=== PATIENT | female | born 1955 | race Two or more races ===

== ENCOUNTER 2017-05-28 08:26 | Inpatient (IN) | payer MEDICAID ==
[2017-05-21 09:40] LABS: BASOPHILS % (AUTO) 0.9 % (0.0-2.0); EOSINOPHILS % (AUTO) 1.9 % (0.0-3.0); MEAN CORPUSCULAR HEMOGLOBIN 30.2 PG (27.0-31.0); MEAN CORPUSCULAR HGB CONC 32.4 G/DL (32.0-36.0); MEAN CORPUSCULAR VOLUME 93 FL (80-99); MEAN PLATELET VOLUME 7.4 FL (6.5-10.1); MONOCYTES % (AUTO) 6.6 % (1.0-10.0); NEUTROPHILS % (AUTO) 56.6 % (45.0-75.0); PLATELET COUNT 194 K/UL (150-450); RED BLOOD COUNT 4.47 M/UL (4.20-5.40); RED CELL DISTRIBUTION WIDTH 12.3 % (11.6-14.8)
[2017-05-21 09:48] LABS: ALANINE AMINOTRANSFERASE 19 U/L (3-33); ALBUMIN/GLOBULIN RATIO 1.5 (1.0-2.7); ANION GAP 8 (5-15); ASPARTATE AMINO TRANSFERASE 22 U/L (5-40); CALCIUM 11.3 mg/dL (8.6-10.2); CARBON DIOXIDE 30 mEQ/L (20-30); CHLORIDE 104 mEQ/L (98-107); CREATININE 0.9 mg/dL (0.5-0.9); GLOMERULAR FILTRATION RATE > 60 mL/min (>60); HEMOLYSIS 4; POTASSIUM 4.2 mEQ/L (3.4-4.9); SODIUM 142 mEQ/L (135-145); TOTAL PROTEIN 7.5 g/dL (6.6-8.7)
--- NOTE | 2017-05-21 10:47 | Diagnostic Imaging Report ---
Indication: Cough Technique: Two views of the chest Comparison: none Findings: Lungs and pleural spaces are clear. Heart size is normal. The bones are unremarkable Impression: Negative
--- NOTE | 2017-05-21 15:37 | Cardiology Report ---
APPROVED REPORT EKG Measurement Heart [id number] Normal sinus rhythm Normal ECG
[~2017-05-28] VITALS: Ht 162.6 cm; Wt 77.1 kg
[2017-05-28] VITALS (12 sets, daily range): BP systolic 98–137; BP diastolic 55–77
[~2017-05-28 08:26] MED LIST: NKM; ceFAZolin sod 1 GM in NS 55 ML IVPB ONE
[2017-05-28] MEDS ORDERED: Vancomycin 1 GM in D5W 275 ML IVPB ONE (09:00)
--- NOTE | 2017-05-28 12:28 | Pre-Procedure Note/Attestation ---
Pre-Procedure Note/Attestation Complete Prior to Procedure Planned Procedure: right Procedure Narrative: right breast partial mastectomy with pre-op needle localization and axillary lymph node biopsy Indications for Procedure Pre-Operative Diagnosis: extensive DCIS right breast Attestation I attest that I discussed the nature of the procedure; its benefits; risks and complications; and alternatives (and the risks and benefits of such alternatives ), prior to the procedure, with the patient (or the patient's legal loan servicing representative). I attest that, if there was a reasonable possibility of needing a blood transfusion, the patient (or the patient's legal loan servicing representative) was given the [facility] standardized written summary, pursuant to the Ángel Hepler Blood Safety Act ([place] Health and Safety Code # 1645, as amended). I attest that I re-evaluated the patient just prior to the surgery and that there has been no change in the patient's H&P, except as documented below: none LUCIO STARR May 28, 2017 12:28
[2017-05-28] MEDS ORDERED: Bupivacaine w/Epi 0.5% 30ml Vial INJ ONE (12:34)
[2017-05-28] MEDS ORDERED: Propofol 10mg/ml 20ml IV ONE (13:00)
[2017-05-28] MEDS ORDERED: Glycopyrrolate 0.2mg/ml 1ml Vial ONE (13:00)
[2017-05-28] MEDS ORDERED: Ketorolac 30mg Inj ONE (13:00)
[2017-05-28] MEDS ORDERED: Zemuron 50mg/5ml Inj IV ONE (13:00)
[2017-05-28] MEDS ORDERED: Dexamethasone 4mg/ml vial ONE (13:00)
[2017-05-28] MEDS ORDERED: fentaNYL 100 mcg/2 mL IV ONE (13:00)
[2017-05-28] MEDS ORDERED: Sterile Water Irrig 1000ml IRRIG ONE (13:00)
[2017-05-28] MEDS ORDERED: Morphine Sulfate 10mg/ml Inj ONE (13:00)
[2017-05-28] MEDS ORDERED: Midazolam 2mg/2ml Inj ONE (13:00)
[2017-05-28] MEDS ORDERED: Metoclopramide 10mg/2ml Inj ONE (13:00)
[2017-05-28] MEDS ORDERED: Neostigmine 1mg/ml 10ml Inj ONE (13:00)
--- NOTE | 2017-05-28 14:11 | Anethesia Preoperative Eval ---
Anesthesia Pre-op PMH/ROS General Date of Evaluation: May 28, 2017 Time of Evaluation: 13:00 Anesthesiologist: tavia ASA Score: ASA 2 Mallampati Score Class I : Soft palate, uvula, fauces, pillars visible Class II: Soft palate, uvula, fauces visible Class III: Soft palate, base of uvula visible Class IV: Only hard plate visible Mallampati Classification: Class I Surgeon: bita Diagnosis: rIGHT BREAST MASS Surgical Procedure: RIGHT PARTIAL MASTECTOMY AXILLAR NODE DISSECTION Anesthesia History: none Family History: no anesthesia problems Allergies: Coded Allergies: No Known Allergies (Unverified , 05/26/17) Medications: see eMAR Anesthesia Pre-op Phys. Exam Physician Exam Last Vital Signs Date Time Temp Pulse Resp B/P (MAP) Pulse Ox O2 Delivery O2 Flow Rate FiO2 05/28/17 12:10 97.6 75 18 115/69 97 Room Air Constitutional: NAD Neurologic: CN 2-12 intact Cardiovascular: RRR Respiratory: CTA Airway Exam Mallampati Score: Class II MO: full ROM: full Teeth: intact Anesthesia Pre-op A/P Risk Assessment & Plan Plan: GA Pre-Antibiotics Given Within 1 Hr of Incision: Yes Time Given: 13:40 Neto Alcocer M.D. May 28, 2017 14:11
--- NOTE | 2017-05-28 14:13 | Immediate Post-Op Evaluation ---
Immediate Post-Op Evalulation Immediate Post-Op Evalulation Procedure: RIGHT PARTIAL MASTECTOMY Date of Evaluation: May 28, 2017 Time of Evaluation: 14:45 IV Fluids: 1000 Blood Products: 0 Estimated Blood Loss: 5 Urinary Output: 0 Blood Pressure Systolic: 105 Blood Pressure Diastolic: 63 Pulse Rate: 55 Respiratory Rate: 16 O2 Sat by Pulse Oximetry: 99 Temperature (Fahrenheit): 98 Pain Score (1-10): 0 Nausea: No Vomiting: No Patient Status: awake, reacts, patent Hydration Status: adequate Given Within 1 Hr of Incision: Yes Time Given: 13:40 Neto Alcocer M.D. May 28, 2017 14:13
[2017-05-28] MEDS ORDERED: Metoclopramide 10mg/2ml Inj IVP PRN ×2 (14:15→16:00)
[2017-05-28] MEDS ORDERED: fentaNYL 100 mcg/2 mL IV PRN (14:15)
[2017-05-28] MEDS ORDERED: Hydromorphone 0.5mg/0.5ml inj IVP PRN (14:15)
[2017-05-28] MEDS ORDERED: Meperidine 25mg/0.5ml Inj (FOR RIGORS ONLY) IV PRN (14:15)
--- NOTE | 2017-05-28 14:15 | 48 Hour Post Anesthesia Eval ---
Post Anesthesia Evaluation Procedure: RIGHT PARTIAL MASTECTOMY Date of Evaluation: May 30, 2017 Time of Evaluation: 08:00 Blood Pressure Systolic: 123 0: 74 Pulse Rate: 82 Respiratory Rate: 14 Temperature (Fahrenheit): 98 O2 Sat by Pulse Oximetry: 99 Airway: patent Nausea: No Vomiting: No Pain Intensity: 0 Hydration Status: adequate Mental Status/LOC: patient returned to baseline Follow-up care needed: patient intructions given Neto Alcocer M.D. May 28, 2017 14:15
[2017-05-28] MEDS ORDERED: NS Irrig 1000ml IRRIG ONE (14:25)
--- NOTE | 2017-05-28 15:28 | Brief Operative Note ---
Immediate Post Operative Note Operative Note Pre-op Diagnosis: extensive DCIS right breast Procedure: right breast partial mastectomy with pre-op needle localization and right axillary lymph node biopsy Post-op Diagnosis: extensive DCIS right breast Post-op Diagnosis: same as pre-op Findings: consistent w/pre-op dx studies Surgeon: bita Glove Presser: merlin Anesthesiologist: tavia Anesthesia: general Specimen: yes - partial mastectomy, axillary lymph nodes Complications: none Condition: stable Fluids: see anesthesia record Estimated Blood Loss: minimal Drains: SIVAKUMAR Implant(s) used?: No LUCIO STARR May 28, 2017 15:28
[2017-05-28] MEDS ORDERED: Norco 5mg/325mg tab ORAL PRN (16:00)
[2017-05-28] MEDS ORDERED: HYDROmorphone 1mg/ml Carpuject SUBQ PRN (16:00)
[2017-05-28] MEDS ORDERED: D5 1/2NS w/KCl 20mEq 1,000 ML IV SCH (20:00)
[2017-05-29] VITALS: BP 105/61
[2017-05-29 04:00] VITALS: BP 100/58
--- NOTE | 2017-05-29 07:30 | Operative Note - Dictated ---
DATE OF OPERATION: 05/28/2017 SURGEON: Andrew Marrero M.D. COSMETOLOGY EDUCATOR: Harvey Arita M.D. ANESTHESIOLOGIST: Dr. Alcocer. TYPE OF ANESTHESIA: General. PREOPERATIVE DIAGNOSIS: Extensive ductal carcinoma in situ, right breast. POSTOPERATIVE DIAGNOSIS: Extensive ductal carcinoma in situ, right breast. OPERATION PERFORMED: Right breast partial mastectomy with preoperative needle localization and right axillary lymph node biopsy. DESCRIPTION OF PROCEDURE: The patient was taken to the operating room and under general anesthesia with sequential compression device stockings in place, she was prepped and draped in the usual fashion. The needle localization wire was in the right breast at 3 o'clock. A transverse curvilinear incision was made and flaps dissected circumferentially. The entire quadrant was resected down to the chest wall using cautery for hemostasis. It was oriented with suture markers anterior, medial, and superior for the pathologist. Specimen radiography confirmed the presence of the calcifications within the tissue removed. The field was irrigated and hemostasis was secured. The incision was closed with interrupted inverted 3-0 Vicryl subcutaneous deep dermal sutures followed by 4-0 Monocryl subcuticular suture. Then, a transverse curvilinear right axillary incision was made achieving hemostasis with cautery and incising the clavipectoral fascia. There was some attachment of the axillary skin to the chest wall and a full-thickness entry was made, which was subsequently repaired. The axillary fat pad with at least one visible lymph node was resected using clips, 3-0 Vicryl ties, and cautery for hemostasis. Through a separate stab incision inferior to the main incision, a 19 mm round Ernie drain was placed into the axilla and sutured to the skin with a 2-0 silk skin suture and connected to bulb suction. The field was irrigated and hemostasis was secured. The nerves have been preserved. The clavipectoral fascia was closed with interrupted 3-0 Vicryl as well as the subcutaneous tissues and the skin closed with continuous 4-0 Monocryl subcuticular suture. The full-thickness skin entry in the axilla was closed with interrupted 2-0 nylon vertical mattress sutures. Then, tincture of benzoin and half-inch Steri-Strips were applied followed by dry sterile dressing. Final sponge and needle counts were correct. The patient tolerated the procedure well and left the operating room in good condition. Harvey Arita M.D. DR: ZACK JOB#: [id number] CC:
[2017-05-29 08:23] VITALS: BP 93/56
[2017-05-29 11:48] VITALS: BP 109/62
--- NOTE | 2017-05-29 13:06 | General Progress Note ---
Progress Note Progress Note AVSS Had nausea and emesis last night and delayed voiding but now feels better. Not needing analgesics Breast incision clean. Right axillary incisions clean and dry. \SIVAKUMAR drain 57cc serosang Imp: Post-op nausea and emesis, resolved Plan: Instruct patient and family re care of SIVAKUMAR drain Will discharge in [place] if continues stable LUCIO STARR May 29, 2017 13:06
[2017-05-29 16:09] VITALS: BP 112/68
[2017-05-29 20:16] VITALS: BP 120/75
[2017-05-30 00:16] VITALS: BP 130/70
[2017-05-30 04:00] VITALS: BP 128/65
[2017-05-30 08:33] VITALS: BP 121/73
--- NOTE | 2017-05-30 08:34 | General Progress Note ---
Progress Note Progress Note AVSS No further emesis. Has learned how to care for SIVAKUMAR drain Breast incision clean, no ecchymosis/hematoma/ steristrips intact Axilla clean - new steristrips applied + gauze over SIVAKUMAR drain site - daughter and patient instructed Imp. Doing well Plan: discharge with SIVAKUMAR drain f/u 06/05 in [facility] - call LUCIO Mcelroy May 30, 2017 08:34
--- NOTE | 2017-06-02 11:24 | Discharge Summary ---
Discharge Summary Hospital Course Date of Admission May 28, 2017 at 11:30 Date of Discharge May 30, 2017 at 08:47 Admitting Diagnosis R breast carcinoma Reason for Hospitalization: elective surgery HPI Jackie Taylor is a 61 year old female who was admitted on May 28, 2017 at 11:30 for right breast carcinoma and elective surgery Procedures s/p 05/[address] Marrero and dr Harvey Arita right breast partial mastectomy with pre-op needle localization and right axillary lymph node biopsy Hospital Course s/p surgery 05/28 postop day 1 - nausea and emesis, delayed voiding a/emetic prn voided nausea subsided able to tolerate diet pain management, controlled incision clean and dry steri strips applied prior to dc SIVAKUMAR output was monitored patient was taught self care of SIVAKUMAR drain stable for discharge: tolerates diet, pain controlled, incision clean and dry, voided freely patient to fup with breast clinic 06/05 FINAL DIAGNOSIS extensive ductal R breast carcinoma in situ s/p right breast partial mastectomy with pre-op needle localization and right axillary lymph node biopsy Discharge Condition Upon Discharge: stable Discharge Disposition Patient was discharged to Home () Discharge Diagnoses: Discharge Instructions Discharge Instructions Special Instructions I have been assigned to complete a D/C Summary on this account. I was not involved in the patient management Taylor ([facility])Drea NP Jun 02, 2017 11:24
== END 2017-05-30 08:47 | disposition home or self-care (01) | DRG 363 ==
LOC: SDSOVERFLO 11:30 → 3E 15:09
PROC: 07B50ZX Excision of Right Axillary Lymphatic, Open Approach, Diagnostic (ICD-10-PCS; 2017-05-28)
PROC: 0HBT0ZZ Excision of Right Breast, Open Approach (ICD-10-PCS; principal; 2017-05-28 13:30)
DX: D05.11 Intraductal carcinoma in situ of right breast (principal)
CPT/HCPCS: 36415; 71020; 80053; 85025; 85610; 85730; 86850; 86900; 86901; 87081; 93005; 94003; 94150; J2180; J2250; J2405; J2710; J2765